=== PATIENT | female | born 1965 | race Caucasian/White ===

== ENCOUNTER 2020-12-16 12:29 | Inpatient (IN) | payer BC, SELFPAY ==
[~2020-12-16] VITALS: Ht 160 cm; Wt 65.3 kg
[2020-12-16 12:50] VITALS: BP_SYST 121
[2020-12-16] MEDS ORDERED: ASPIRIN 325 MG TABLET PO ONE (13:30)
[2020-12-16] MEDS ORDERED: ENOXAPARIN SODIUM 60 MG/0.6 ML SYRINGE SUBCUT ONE (13:30)
[2020-12-16] MEDS ORDERED: NITROGLYCERIN 1 INCH (GM) OINT. ONE (13:39)
[2020-12-16] MEDS ORDERED: MORPHINE 4 MG INJ. 4 MG/ML VIAL ONE (13:39)
[2020-12-16 13:59] LABS: BASOPHILS % (AUTO) 0.8 % (0.0-2.0); EOSINOPHILS # (AUTO) 0.1 K/uL (0.0-0.4); EOSINOPHILS % (AUTO) 1.5 % (0.0-4.0); HEMATOCRIT 38.7 % (36-48); HEMOGLOBIN 12.6 g/dL (12.0-16.0); LYMPHOCYTES # (AUTO) 1.8 K/uL (1.0-5.5); LYMPHOCYTES % (AUTO) 30.7 % (20.5-51.5); MEAN CORPUSCULAR HEMOGLOBIN 29 pg (27-31); MEAN CORPUSCULAR HGB CONC 33 % (32-36); MEAN CORPUSCULAR VOLUME 90 fL (79.0-98.0); MONOCYTES # (AUTO) 0.5 K/uL (0.0-1.0); MONOCYTES % (AUTO) 8.5 % (1.7-9.3); NEUTROPHILS # (AUTO) 3.4 K/uL (1.8-7.7); NEUTROPHILS % (AUTO) 58.5 % (40.0-70.0); PLATELET COUNT (AUTO) 356 K/uL (130-430); RED BLOOD CELL COUNT(AUTO) 4.29 MIL/uL (4.2-6.2); RED CELL DISTRIBUTION WIDTH 13.4 % (9.0-15.0); WHITE BLOOD COUNT (AUTO) 5.7 K/uL (4.8-10.8)
[2020-12-16 14:09] LABS: CREATININE 0.99 mg/dL (0.55-1.30); POTASSIUM 4.1 mmol/L (3.5-5.1)
[2020-12-16 14:11] LABS: PROTHROMBIN TIME 10.3 SECS (9.5-12.5)
[2020-12-16 14:14] LABS: ALBUMIN 3.8 g/dL (3.4-4.8); CHOLESTEROL 227 mg/dL (<200); HDL CHOLESTEROL 59 mg/dL (>55); LDL CHOLESTEROL 141 mg/dL (<100); TOTAL BILIRUBIN 0.4 mg/dL (0.0-1.0); TRIGLYCERIDES 113 mg/dL (30-150)
[2020-12-16] MEDS ORDERED: ALBMDI INH (14:48)
[2020-12-16] MEDS ORDERED: MONT10TA22 PO (14:48)
[2020-12-16] MEDS ORDERED: BUSP10TA3 PO (14:48)
[2020-12-16] MEDS ORDERED: TRAM50TA2 PO (14:48)
[2020-12-16] MEDS ORDERED: CLON0.5T4 PO (14:48)
[2020-12-16] MEDS ORDERED: ESCI10TA PO (14:48)
[2020-12-16 16:30] VITALS: BP_SYST 122
[2020-12-16] MEDS ORDERED: ACETAMINOPHEN 325 MG TABLET PO PRN (18:30)
[2020-12-16] MEDS ORDERED: ONDANSETRON HCL 4 MG/2 ML VIAL IM PRN (19:30)
[2020-12-16 20:00] VITALS: BP_SYST 125
[2020-12-16] MEDS ORDERED: traMADol HCL HCL 50 MG TABLET (ULTRAM) PO PRN (20:45)
[2020-12-16] MEDS ORDERED: CITALOPRAM HYDROBROMIDE 20 MG TABLET PO ONE (21:00)
[2020-12-16] MEDS ORDERED: ESCITALOPRAM OXALATE 10 MG TABLET PO SCH (21:00)
[2020-12-16] MEDS ORDERED: busPIRone HCL 5 MG TABLET PO SCH (21:00)
[2020-12-16] MEDS: clonazePAM 0.5 MG TABLET PO SCH (21:34)
[2020-12-16] MEDS ORDERED: MORPHINE 4 MG INJ. 4 MG/ML VIAL IVP ONE (23:30)
[2020-12-16] MEDS ORDERED: NITROGLYCERIN 1 INCH (GM) OINT. TP ONE (23:30)
[2020-12-17] VITALS: BP_SYST 119
[2020-12-17 06:32] LABS: BASOPHILS # (AUTO) 0.1 K/uL (0.0-0.2); EOSINOPHILS # (AUTO) 0.1 K/uL (0.0-0.4); EOSINOPHILS % (AUTO) 1.8 % (0.0-4.0); HEMATOCRIT 37.8 % (36-48); HEMOGLOBIN 12.5 g/dL (12.0-16.0); LYMPHOCYTES # (AUTO) 1.8 K/uL (1.0-5.5); LYMPHOCYTES % (AUTO) 30.9 % (20.5-51.5); MEAN CORPUSCULAR HEMOGLOBIN 30 pg (27-31); MEAN CORPUSCULAR HGB CONC 33 % (32-36); MEAN CORPUSCULAR VOLUME 91 fL (79.0-98.0); MONOCYTES # (AUTO) 0.5 K/uL (0.0-1.0); MONOCYTES % (AUTO) 9.2 % (1.7-9.3); NEUTROPHILS # (AUTO) 3.3 K/uL (1.8-7.7); NEUTROPHILS % (AUTO) 57.1 % (40.0-70.0); PLATELET COUNT (AUTO) 340 K/uL (130-430); RED BLOOD CELL COUNT(AUTO) 4.18 MIL/uL (4.2-6.2); RED CELL DISTRIBUTION WIDTH 13.4 % (9.0-15.0); WHITE BLOOD COUNT (AUTO) 5.8 K/uL (4.8-10.8)
[2020-12-17 07:08] LABS: ALBUMIN 3.4 g/dL (3.4-4.8); CALCIUM 8.9 mg/dL (8.4-11.0); CREATININE 0.87 mg/dL (0.55-1.30); POTASSIUM 4.3 mmol/L (3.5-5.1); THYROID STIMULATING HORMONE 2.97 uIu/mL (0.36-3.74); TOTAL BILIRUBIN 0.4 mg/dL (0.0-1.0)
[2020-12-17 08:02] VITALS: BP_SYST 135
[2020-12-17] MEDS: clonazePAM 0.5 MG TABLET PO SCH ×2 (09:00→15:23)
[2020-12-17] MEDS ORDERED: MONTELUKAST 10 MG TABLET PO SCH (09:00)
[2020-12-17] MEDS ORDERED: busPIRone HCL 5 MG TABLET PO ONE (11:30)
[2020-12-17 12:17] VITALS: BP_SYST 123
[2020-12-17 17:30] VITALS: BP_SYST 115
[2020-12-17 18:13] VITALS: BP_SYST 115
[2020-12-17] MEDS ORDERED: busPIRone HCL 5 MG TABLET PO SCH (21:00)
== END 2020-12-17 19:16 | disposition home or self-care (01) | DRG 313 ==
LOC: SED 12:29 → STU 15:46
PROVIDERS: ADMIT Preventive Medicine Preventive Medicine/Occupational Environmental Medicine; ATTEND Preventive Medicine Preventive Medicine/Occupational Environmental Medicine
DX: R07.89 Other chest pain (principal); E78.5 Hyperlipidemia, unspecified; F41.9 Anxiety disorder, unspecified; Z20.822 Contact with and (suspected) exposure to COVID-19; Z82.49 Family history of ischemic heart disease and other diseases of the circulatory system; Z91.010 Allergy to peanuts; Z91.040 Latex allergy status; Z88.8 Allergy status to other drugs, medicaments and biological substances; Z91.018 Allergy to other foods; Z79.899 Other long term (current) drug therapy
CPT/HCPCS: 36415; 71045; 80053; 80061; 83735; 83880; 84443; 84484; 85025; 85379; 85610-TC; 85730-TC; 93005; 93017; 93306; 96361; 96374; 99285; G0378; J1650; J2270

== ENCOUNTER 2022-10-27 21:11 | Emergency (ER) | payer BC ==
[~2022-10-27] VITALS: Ht 157.5 cm; Wt 56.7 kg
[~2022-10-27 21:11] MED LIST: ALBMDI INH; BUSP10TA3 PO; CLON0.5T4 PO; ESCI10TA PO; MONT-47 PO; TRAM50TA2 PO
[2022-10-27 21:13] VITALS: BP_SYST 155
--- NOTE | 2022-10-27 21:13 | NUR ---
Patient to ER bed 6 to gown for evaluation. Side rails up. Report given to CASTRO VASQUEZ.
[2022-10-27] MEDS ORDERED: MORPHINE 4 MG INJ. 4 MG/ML VIAL IM ONE (22:30)
--- NOTE | 2022-10-27 22:45 | NUR ---
ER at bedside examining patient.
[2022-10-27] MEDS ORDERED: HYDR-3917 PO (23:08)
[2022-10-27 23:19] VITALS: BP_SYST 155
--- NOTE | 2022-10-27 23:21 | NUR ---
Patient given written and verbal discharge instructions and verbalizes understanding. ER MD discussed with patient the results and treatment provided. Patient in stable condition. ID arm band removed. Rx of NORCO given. Patient educated on pain management, LACERATION, SUTURES STAPLESand to follow up with PMD. Pain Scale . Opportunity for questions provided and answered. Medication side effect fact sheet provided.
== END 2022-10-27 23:19 | disposition home or self-care (01) ==
LOC: SED 21:11
DX: S01.01XA Laceration without foreign body of scalp, initial encounter (principal); J45.909 Unspecified asthma, uncomplicated; Z88.0 Allergy status to penicillin; Z88.1 Allergy status to other antibiotic agents; Z88.6 Allergy status to analgesic agent; Z91.040 Latex allergy status; Z79.899 Other long term (current) drug therapy; W07.XXXA Fall from chair, initial encounter; Y93.89 Activity, other specified; Y92.89 Other specified places as the place of occurrence of the external cause; Y99.8 Other external cause status
CPT/HCPCS: 99283; 96372; J2270